=== PATIENT | male | born 1940 | race Caucasian/White ===

== ENCOUNTER → 2017-06-27 | Outpatient (CLI) | payer MEDICARE, BC ==
[2017-06-27 15:53] LABS: CH 31.7; CHCM 32.1; HCT 46.2 % (39.0-53.0); HDW 2.36; HGB 14.4 gm/dL (13.0-17.5); MCH 30.9 pg (25.0-35.0); MCHC 31.2 g/dL (31.0-37.0); Mean Platelet Volume 7.1; RBC 4.67 m/uL (4.30-5.90); RDW 12.8 % (11.5-15.5); WBC 9.8 k/uL (3.8-10.6)
[2017-06-27 16:00] LABS: Anion Gap 9 mmol/L; Blood Urea Nitrogen 12 mg/dL (9-20); Calcium 9.8 mg/dL (8.4-10.2); Carbon Dioxide 25 mmol/L (22-30); Chloride 100 mmol/L (98-107); Glucose 93 mg/dL (74-99); Non-African American GFR(MDRD) >60 (>60 ml/min/1.73 sqM); Potassium 5.2 mmol/L (3.5-5.1); Sodium 134 mmol/L (137-145)
== END | disposition home or self-care (01) ==
LOC: LABWHC1 15:23
PROVIDERS: ATTEND Internal Medicine Interventional Cardiology
DX: R63.4 Abnormal weight loss (principal); I25.10 Atherosclerotic heart disease of native coronary artery without angina pectoris
CPT/HCPCS: 36415; 80048; 85027

== ENCOUNTER → 2017-08-10 | Outpatient (CLI) | payer MEDICARE, BC ==
[2017-08-10 10:26] LABS: Calcium 9.8 mg/dL (8.4-10.2); Magnesium 1.8 mg/dL (1.6-2.3)
[2017-08-14 06:32] LABS: Vitamin E (Alpha Tocopherol) 472 ug/dL (500-1800)
[2017-08-20 19:35] LABS: Vitamin K 102 pg/mL (80-1160)
[2017-08-24 14:03] LABS: Nicotinamide 20 ng/mL; Nicotinic Acid None Detected; Nicotinuric Acid None Detected
== END | disposition home or self-care (01) ==
LOC: LABWHC1 08:42
PROVIDERS: ATTEND Psychiatry & Neurology Pain Medicine
DX: G89.4 Chronic pain syndrome (principal); Z79.899 Other long term (current) drug therapy
CPT/HCPCS: 36415; 82306; 82310; 82550; 82746; 83519; 83735; 84207; 84425; 84446; 84590; 84591; 84597

== ENCOUNTER → 2017-10-04 | Outpatient (CLI) | payer MEDICARE, BC ==
--- NOTE | 2017-10-05 09:09 | US ---
EXAMINATION TYPE: US kidneys/renal and bladder DATE OF EXAM: 10/04/2017 COMPARISON: NONE CLINICAL HISTORY: R31.9 Gross hematuria. EXAM MEASUREMENTS: Right Kidney: 10.6 x 4.3 x 5.0 cm Left Kidney: 11.5 x 6.1 x 5.9 cm Right Kidney: No hydronephrosis. Small simple appearing cyst lower pole measuring 1.3 x 1.0 x 1.4 cm Left Kidney: No hydronephrosis or masses seen Bladder: wnl Bilateral Jets seen: Yes There is no evidence for hydronephrosis at this point in time. No nephrolithiasis is seen. The ur inary bladder is anechoic. Bilateral ureteral jets are seen. IMPRESSION: No significant finding is seen to account for patient's symptoms of hematuria. If symptoms persists f urther investigation with CT urogram would be warranted.
== END | disposition home or self-care (01) ==
LOC: RADUSMAIN 15:27
PROVIDERS: ATTEND Internal Medicine
DX: R31.9 Hematuria, unspecified (principal)
CPT/HCPCS: 76770

== ENCOUNTER → 2017-10-31 | Outpatient (CLI) | payer MEDICARE, BC ==
[2017-10-31 19:13] LABS: Iron Saturation 32.48 (15.00-50.00)
== END | disposition home or self-care (01) ==
LOC: LABWHC1 13:28
PROVIDERS: ATTEND Psychiatry & Neurology Pain Medicine
DX: D64.9 Anemia, unspecified (principal); G62.9 Polyneuropathy, unspecified; G89.29 Other chronic pain; M62.81 Muscle weakness (generalized); R53.83 Other fatigue
CPT/HCPCS: 36415; 82728; 83540; 83550; 84466; 84550

== ENCOUNTER → 2018-02-14 | Outpatient (CLI) | payer MEDICARE, BC ==
[2018-02-14 18:44] LABS: Blood Urea Nitrogen 14 mg/dL (9-20)
--- NOTE | 2018-02-15 09:30 | CT ---
EXAMINATION TYPE: CT chest w con DATE OF EXAM: 02/14/2018 COMPARISON: NONE HISTORY: Cough, weight loss and inability to get warm CT DLP: 298.2 mGycm, Automated exposure control for dose reduction was used. CONTRAST: Performed injected with 100 mL of Isovue 300. TECHNIQUE: Axial images were obtained at 5 mm thick sections. Reconstructed images are reviewed on [employer] computer in the coronal plane. FINDINGS: Portion of the thyroid visualized is normal. No suspicious lung findings.. Very minimal subsegmental streak atelectasis in the superior segment le ft lower lobe. Near the major fissure postsurgical changes are within the mediastinum from prior card iac surgery. Sternotomy wires are present. No enlarged mediastinal or hilar adenopathy is evident. Couple small shotty lymph nodes are present . The ascending aorta diameter at the level of the main pulmonary artery is 3.8 cm. The main pulmona ry artery diameter at the bifurcation is 2.7 cm. Coronary artery calcification appears to be present. Limited CT sections are obtained through the upper abdomen. Abundant fecal debris is through the visu hunter colon Abdomen is otherwise essentially unremarkable. IMPRESSIONS: 1. No acute abnormality CT chest
== END ==
LOC: RADCTMAIN 18:07
PROVIDERS: ATTEND Internal Medicine
DX: R05 Cough (principal); R63.4 Abnormal weight loss
CPT/HCPCS: 82565; 84520; 71260; 36415; Q9967

== ENCOUNTER 2018-07-28 22:54 | Inpatient (IN) | payer MEDICARE, BC ==
[2018-07-28] MEDS ORDERED: MORPHINE SULFATE 2 MG/ML SYRINGE IVP STA (23:15)
[2018-07-28] MEDS ORDERED: ONDANSETRON 4 MG/2 ML VIAL IVP STA (23:15)
[2018-07-28] MEDS ORDERED: MORPHINE SULFATE 4 MG/ML SYRINGE IVP STA (23:24)
[2018-07-28 23:39] LABS: Basophils % (A) 0 %; Eosinophils # (A) 0.1 k/uL (0-0.7); Eosinophils % (A) 1 %; HCT 41.6 % (39.0-53.0); HGB 13.6 gm/dL (13.0-17.5); Lymphocytes # (A) 1.3 k/uL (1.0-4.8); Lymphocytes % (A) 11 %; MCH 30.4 pg (25.0-35.0); MCHC 32.6 g/dL (31.0-37.0); MCV 93.3 fL (80.0-100.0); Mean Platelet Volume 7.4; Monocytes # (A) 0.5 k/uL (0-1.0); Monocytes % (A) 5 %; Neutrophils # (A) 9.6 k/uL (1.3-7.7); Neutrophils % (A) 82 %; Platelet Count 557 k/uL (150-450); RBC 4.46 m/uL (4.30-5.90); RDW 13.5 % (11.5-15.5); WBC 11.7 k/uL (3.8-10.6)
[2018-07-28 23:48] LABS: Albumin 4.5 g/dL (3.5-5.0); Anion Gap 13 mmol/L; Blood Urea Nitrogen 15 mg/dL (9-20); Calcium 10.1 mg/dL (8.4-10.2); Carbon Dioxide 21 mmol/L (22-30); Chloride 96 mmol/L (98-107); Glucose 130 mg/dL (74-99); Sodium 130 mmol/L (137-145); Total Bilirubin 1.4 mg/dL (0.2-1.3)
[2018-07-28 23:50] LABS: ALT 32 U/L (21-72); AST 36 U/L (17-59); Alkaline Phosphatase 76 U/L (38-126); Magnesium 1.8 mg/dL (1.6-2.3); Potassium 5.1 mmol/L (3.5-5.1)
[2018-07-29] MEDS ORDERED: ONDANSETRON 4 MG/2 ML VIAL IVP STA (00:18)
[2018-07-29] MEDS ORDERED: HYDROmorphone 1 MG/ML 1 ML SYRINGE IVP STA (00:20)
[2018-07-29 00:29] LABS: Creatine Kinase MB 2.5 ng/mL (0.0-2.4)
--- NOTE | 2018-07-29 00:34 | CT ---
EXAMINATION TYPE: CT angio thor/abd pel aorta DATE OF EXAM: 07/29/2018 COMPARISON: HISTORY: lower abdominal and back pain CT DLP: 1408.6 mGycm. Automated Exposure Control for Dose Reduction was Utilized. CONTRAST: CT scan of the thorax, abdomen and pelvis is performed with IV Contrast, patient injected with 100mL mL of Isovue 370. FINDINGS: Multiple axial sections were obtained from the aortic arch to the mid pelvis without and subsequently with intravenous contrast. There are 3-D post processed images. There is coarse interstitial density in the lungs. There is no evidence of a pulmonary mass. Heart is enlarged. Thoracic aorta is intact without evidence of aneurysm or dissection. There is normal contr ast opacification of the pulmonary arteries. The ascending aorta measures 3.8 cm. Abdominal aorta ivana sures 3.2 cm at the diaphragm. There is patency of the celiac artery and superior mesenteric artery. There is bilateral patency of t he renal arteries. There is bilateral patency of the common internal and extra iliac arteries. I see no retroperitoneal adenopathy. There is no evidence of abdominal aortic aneurysm or dissection. Liver spleen pancreas both kidneys appear intact. There is 2 cm cortical cyst posterior right kidney. Ther e is no adrenal mass. There is retained fecal material in the large bowel. There is multilevel spondy losis in the lumbar spine with bony spinal stenosis at L4-5. There is also spinal stenosis at L5-S1. IMPRESSION: Negative CT angiogram of the chest and abdomen. No evidence of aortic aneurysm or dissection. No evid ence of hemodynamic stenosis.Mild ectasia of the upper abdominal aorta. Constipation. Lumbar spinal stenosis.
--- NOTE | 2018-07-29 01:15 | XR ---
EXAMINATION TYPE: XR chest 2V DATE OF EXAM: 07/29/2018 COMPARISON: 10/23/2014 HISTORY: Chest pain TECHNIQUE: Frontal and lateral views of the chest are obtained. FINDINGS: There is no heart failure nor confluent pneumonic infiltrate. There are small linear densi ty at the left lung base. There are sternal wires. There is thoracic aorta is atheromatous. There are chest leads. IMPRESSION: Subsegmental atelectasis at the left lung base is new compared to old exam. Normal heart.
--- NOTE | 2018-07-29 01:38 | CT ---
EXAMINATION TYPE: CT lumbar spine wo con DATE OF EXAM: 07/29/2018 1:30 AM COMPARISON: None HISTORY: Back pain CT DLP: mGycm Automated exposure control for dose reduction was used. Unenhanced CT of the lumbar spine was performed. Bone and soft tissue window settings are submitted as well as coronal and sagittal reconstructions. There is degenerative mild disc space narrowing throughout the lumbar spine with variable vacuum disc phenomenon. There is spur formation of the endplates throughout the lumbar spine. I see no compressi on fracture. The posterior elements are intact. There is no evidence of focal bone destruction. There is slight lumbar dextroscoliosis. The sacroiliac joints appear intact. There is no lumbar paraspinal mass. There is moderate spinal stenosis at L4-5 due to facet arthropathy and ligamentum flavum thick ening. There is a mild spinal stenosis at L5-S1 and L3-4. IMPRESSION: Moderate spinal stenosis at L4-5. There is mild spinal stenosis at L3-4 and L5-S1. Spondylotic changes without evidence of a fracture.
[2018-07-29] MEDS ORDERED: IBUPROFEN 400 MG TAB PO PRN (01:41)
[2018-07-29] MEDS ORDERED: ACETAMINOPHEN TAB 325 MG TAB PO PRN (01:41)
[2018-07-29] MEDS ORDERED: NALOXONE 0.4 MG/ML 1 ML VIAL IV PRN (01:41)
--- NOTE | 2018-07-29 01:45 | ED ---
Back Pain HPI - General Chief Complaint: Back Pain/Injury Stated Complaint: BACK PAIN Time Seen by Provider: 07/28/18 23:00 Source: patient, EMS - History of Present Illness Initial Comments: This 78-year-old male past medical history of HTN, CAD s/p triple bypass, chronic low back pain presenting today for cc of low back pain x30 minutes. Pt states that while at home on the toilet just prior to arrival he went to turn he began experiencing low back pain, 10/10 sharp pain midline. Patient denies falling or injury to the back. Patient states that he has baseline numbness of the legs from peripheral neuropathy, denies changes today. Patient denies any loss of bowel bladder control or urinary retention. Patient denies any chest pain, shortness of breath. Patient does admit to nausea because of the severity of pain, had episode of emesis prior to arrival. Denies abdominal pain , hematemesis,melena, hematochezia. Upon arrival pt appears to be in distress due to pain, he arrived via EMS, VS stable. Pt grabbing towards lower back. Remainder of ROS (-). - Related Data Home Medications Medication Instructions Recorded Confirmed Aspirin 81 mg PO DAILY 10/23/14 10/23/14 Lisinopril [Prinivil] 10 mg PO DAILY 10/23/14 10/23/14 Metoprolol Tartrate [Lopressor] 50 mg PO DAILY 10/23/14 10/23/14 Simvastatin [Zocor] 20 mg PO HS 10/23/14 10/23/14 Spironolactone [Aldactone] 25 mg PO DAILY 10/23/14 10/23/14 Allergies Allergy/AdvReac Type Severity Reaction Status Date / Time No Known Allergies Allergy Verified 07/28/18 22:57 Review of Systems ROS Statement: Those systems with pertinent positive or pertinent negative responses have been documented in the HPI. ROS Other: All systems not noted in ROS Statement are negative. Constitutional: Denies: fever, chills, night sweats ENT: Denies: ear pain, throat pain Respiratory: Denies: cough, dyspnea, wheezes, hemoptysis, stridor Cardiovascular: Denies: chest pain, palpitations Endocrine: Denies: fatigue Gastrointestinal: Reports: nausea, vomiting. Denies: abdominal pain, diarrhea, constipation, hematemesis, melena, hematochezia Genitourinary: Denies: urgency, dysuria, frequency, hematuria, discharge Musculoskeletal: Reports: back pain (10/10 stabbing pain in the lumbar spine midline) Skin: Denies: rash, lesions Neurological: Reports: weakness (right LE weakness, pt states this has been for years no new changes), numbness (b/l leg numbness states this is chronic). Denies: headache, paresthesias, confusion Past Medical History Past Medical History: Coronary Artery Disease (CAD), Hyperlipidemia, Hypertension History of Any Multi-Drug Resistant Organisms: None Reported Past Surgical History: Cholecystectomy, Coronary Bypass/CABG Past Psychological History: No Psychological Hx Reported Smoking Status: Former smoker Past Alcohol Use History: None Reported Past Drug Use History: None Reported General Exam - General Exam Comments Initial Comments: General: The patient is awake and alert, he appears to be in pain-grabbing lumbar spine Eye: Pupils are equal, round and reactive to light, extra-ocular movements are intact. No nystagmus. There is normal conjunctiva bilaterally. No signs of icterus. Ears, nose, mouth and throat: There are moist mucous membranes and no oral lesions. Neck: The neck is supple, there is no tenderness or JVD. Cardiovascular: There is a regular rate and rhythm. No murmur, rub or gallop is appreciated. Respiratory: Lungs are clear to auscultation, respirations are non-labored, breath sounds are equal. No wheezes, stridor, rales, or rhonchi. Gastrointestinal: No noted diaphoresis, jaundice, pallor, protecting postures or squirming. Symmetrical pigmentation of abdomen without signs of inflammation, or striae. Umbilicus mildline, inverted without swelling. No dilated veins. Abdomen contour obese, no noted abdominal distention. No visible masses. No peristalsis , aortic pulsations, or ventral hernia. Bowel sounds audible in all 4 quadrants , unremarkable. No friction rubs or venous hums. No epigastic, hepatic or abdominal bruits. No tenderness to light or deep palpation. Liver edge, not palpable. Spleen edge, right and left kidney not palpable. Superior bladder margin non-tender. Special Testing: Negative Thornton, Rovsing, McBurney, Fannie, cutaneous hyperesthesia. Iliopsoas and obturator tests negative bilaterally. Negative Heel Jar test/ tres sign. No CVA tenderness. Digital rectal exam deferred. Negative gupta turners or cullens sign Musculoskeletal: Tenderness midline and paravertebral to palpation of the lumbar spine. Strength 5/5 of the LE equally b/l. Sensation intact of the LE to light touch. DP pulses equal bilaterally 2+. Neurological: A&O x 3. CN II-XII intact, There are no obvious motor or sensory deficits. Coordination appears grossly intact. Speech is normal. Skin: Skin is warm and dry and no rashes or lesions are noted. Scar midline of anterior chest. Psychiatric: Cooperative, appropriate mood & affect, normal judgment. Course Vital Signs 07/28/18 07/28/18 07/28/18 22:57 23:13 23:52 Temperature 97.6 F Pulse Rate 72 94 Pulse Rate [ 97 Typesetting Machine Operator/Tender ] Respiratory 20 18 Rate Blood Pressure 138/90 143/85 O2 Sat by Pulse 94 L 99 Oximetry 07/29/18 07/29/18 00:44 02:17 Temperature 98.3 F Pulse Rate 87 66 Pulse Rate [ Typesetting Machine Operator/Tender ] Respiratory 18 18 Rate Blood Pressure 143/75 98/55 O2 Sat by Pulse 100 98 Oximetry - Reevaluation(s) Reevaluation #1: Pain 0 after medications, pt resting comfortably. VS stable on monitor. Pt denies complaints at this time. 07/29/18 Medical Decision Making - Medical Decision Making Upon arrival pt is grabbing at back stating pain 10/10. EKG obtained revealing a normal rate with no acute ST changes, interventricular block noted. Laboratory studies as noted above. Negative cardiac workup including, troponins/ CK-MB, pt denies chest pain or shortness of breath. CTA obtained due to suspicion for AAA from severity of pt symptoms with hx of no direct trauma. CTA (-), lung infiltrate noted-pt stated he is aware and following with primary care provider. Recon of lumbar spine obtained revealing moderate spell stenosis at L4-L5 there is mild stenosis at L3-L4 and L5-S1. No noted severe stenosis. It is no evidence of compression fractures. Some lumbar dextroscoliosis noted. Pt given 4mg morphine, then 1mg dilaudid for pain mgmt during duration in ER. Upon reevaluation pt stated pain 0/10, he is resting comfortably. 2nd EKG obtained due to clarity of 1st, appears to be rhythm suspicious for atrial flutter. Pt rate controlled/hemodynamically stable. No known history of flutter or fibrillation. Pt will be admitted for pain mgmt as well as evaluation for new onset atrial flutter. Pt placed on telemetry with cardiology consult. All findings including incidental discussed with pt, pt verbalized understanding of plan. Pt agreedable with admission, and transferred to the floor in stable condition. Pt admitted to [facility] internal medicine with cardiology associates consult. Case discussed at length with Dr Adame who reviewed all imaging/EKG, and evaluated person [id number] prior to admission. - Lab Data Result diagrams: 07/28/18 23:17 07/28/18 23:17 Lab Results 07/28/18 07/28/18 07/28/18 Range/Units 23:17 23:17 23:17 WBC 11.7 H (3.8-10.6) k/uL RBC 4.46 (4.30-5.90) m/uL Hgb 13.6 (13.0-17.5) gm/dL Hct 41.6 (39.0-53.0) % MCV 93.3 (80.0-100.0) fL MCH 30.4 (25.0-35.0) pg MCHC 32.6 (31.0-37.0) g/dL RDW 13.5 (11.5-15.5) % Plt Count 557 H (150-450) k/uL Neutrophils % 82 % Lymphocytes % 11 % Monocytes % 5 % Eosinophils % 1 % Basophils % 0 % Neutrophils # 9.6 H (1.3-7.7) k/uL Lymphocytes # 1.3 (1.0-4.8) k/uL Monocytes # 0.5 (0-1.0) k/uL Eosinophils # 0.1 (0-0.7) k/uL Basophils # 0.0 (0-0.2) k/uL Sodium 130 L (137-145) mmol/L Potassium 5.1 (3.5-5.1) mmol/L Chloride 96 L (98-107) mmol/L Carbon Dioxide 21 L (22-30) mmol/L Anion Gap 13 mmol/L BUN 15 (9-20) mg/dL Creatinine 0.77 (0.66-1.25) mg/dL Est GFR (CKD-EPI)AfAm >90 (>60 ml/min/1.73 sqM) Est GFR (CKD-EPI)NonAf 88 (>60 ml/min/1.73 sqM) Glucose 130 H (74-99) mg/dL Calcium 10.1 (8.4-10.2) mg/dL Magnesium 1.8 (1.6-2.3) mg/dL Total Bilirubin 1.4 H (0.2-1.3) mg/dL AST 36 (17-59) U/L ALT 32 (21-72) U/L Alkaline Phosphatase 76 (38-126) U/L Total Creatine Kinase 79 (55-170) U/L CK-MB (CK-2) 2.5 H (0.0-2.4) ng/mL CK-MB (CK-2) Rel Index 3.2 Troponin I (0.000-0.034) ng/mL Total Protein 7.0 (6.3-8.2) g/dL Albumin 4.5 (3.5-5.0) g/dL 07/28/18 Range/Units 23:17 WBC (3.8-10.6) k/uL RBC (4.30-5.90) m/uL Hgb (13.0-17.5) gm/dL Hct (39.0-53.0) % MCV (80.0-100.0) fL MCH (25.0-35.0) pg MCHC (31.0-37.0) g/dL RDW (11.5-15.5) % Plt Count (150-450) k/uL Neutrophils % % Lymphocytes % % Monocytes % % Eosinophils % % Basophils % % Neutrophils # (1.3-7.7) k/uL Lymphocytes # (1.0-4.8) k/uL Monocytes # (0-1.0) k/uL Eosinophils # (0-0.7) k/uL Basophils # (0-0.2) k/uL Sodium (137-145) mmol/L Potassium (3.5-5.1) mmol/L Chloride (98-107) mmol/L Carbon Dioxide (22-30) mmol/L Anion Gap mmol/L BUN (9-20) mg/dL Creatinine (0.66-1.25) mg/dL Est GFR (CKD-EPI)AfAm (>60 ml/min/1.73 sqM) Est GFR (CKD-EPI)NonAf (>60 ml/min/1.73 sqM) Glucose (74-99) mg/dL Calcium (8.4-10.2) mg/dL Magnesium (1.6-2.3) mg/dL Total Bilirubin (0.2-1.3) mg/dL AST (17-59) U/L ALT (21-72) U/L Alkaline Phosphatase (38-126) U/L Total Creatine Kinase (55-170) U/L CK-MB (CK-2) (0.0-2.4) ng/mL CK-MB (CK-2) Rel Index Troponin I 0.017 (0.000-0.034) ng/mL Total Protein (6.3-8.2) g/dL Albumin (3.5-5.0) g/dL - EKG Data EKG Comments: #1 EKG, unable to determine rhythm appears regular. Non specific T wave abnormalities. No ST elevation or depression. Nonspecific intraventricular block. Vent rate 96bpm, QRS 132 ms, QT/QTC 334/421 ms #2 see above EKG, with atrial flutter rate of 88bpm. Disposition Clinical Impression: Low back pain, Spinal stenosis, Intractable pain, Atrial flutter Disposition: ADMITTED IP TO THIS [facility] Condition: Stable Is patient prescribed a controlled substance at d/c from ED?: No Time of Disposition: 01:44 Decision to Admit Reason: Admit from EC Decision Date: 07/29/18 Decision Time: 01:44
[2018-07-29] MEDS: ONDANSETRON 4 MG/2 ML VIAL IVP PRN ×3 (04:47→23:41)
[2018-07-29] MEDS: MORPHINE SULFATE 4 MG/ML SYRINGE IV PRN ×5 (04:48→23:41)
[2018-07-29] MEDS: SODIUM CHLORIDE 0.9% 1,000 ML IV SCH (08:02)
--- NOTE | 2018-07-29 11:09 | P.CRDCN ---
History of Present Illness Consult date: 07/29/18 Requesting physician: Corazon Phillips Consult reason: atrial flutter Chief complaint: Back pain History of present illness: This is a pleasant 78-year-old gentleman with history of hyperlipidemia, coronary artery disease with prior bypass surgery in 2011. Patient underwent VASQUEZ to the LAD, saphenous vein graft to the OM and saphenous vein graft to the right coronary artery. Patient also has history of hypertension. He presents to the hospital on this occasion with symptoms of lower back pain and bilateral leg numbness. Apparently the patient was sitting on the toilet, he turned sideways and developed a sharp 10 out of 10 chest pain. He does have some numbness in his legs routinely from peripheral neuropathy but this seemed to be worse. He did have an episode of nausea and vomiting prior to arrival here. According to the , patient has also had a very poor appetite recently at home, has lost about 10 pounds since April. At the time of my examination this morning his pain is significantly improved. An EKG was performed on the patient's arrival which showed atrial flutter, subsequent EKG continued to show atrial flutter with a 3 to one conduction. [address]-T wave changes. According to the patient he has never been told in the past to have any irregularity of his heartbeat. CT of the thoracic aorta was performed which was negative, no evidence of aortic aneurysm or dissection. Chest x-ray showed subsegmental atelectasis in the left lung base new as compared with old exam. CT of the lumbar spine showed moderate spinal stenosis at L4 to 5. Spondylitic changes without any evidence of acute fracture. Blood pressure on arrival here 138/90 with a heart rate in the 90s, 94% on room air. Blood pressure this morning 110/60 with a heart rate in the 70s, 97% on 2 L of oxygen. White blood cell count 11.7, hemoglobin 13.6, platelet count 557. Sodium 1:30, potassium 5.1, BUN 15, creatinine 0.7. Magnesium 1.8, total bilirubin 1.4. Troponin 0.01. I did have a discussion with the patient, his and his son regarding the importance of anticoagulation for stroke prevention. We will obtain an echocardiogram with Doppler study as well as a TSH, start the patient on Eliquis for anticoagulation. Past Medical History Past Medical History: Coronary Artery Disease (CAD), Hyperlipidemia, Hypertension Additional Past Medical History / Comment(s): new onset A flutter History of Any Multi-Drug Resistant Organisms: None Reported Past Surgical History: Cholecystectomy, Coronary Bypass/CABG Past Anesthesia/Blood Transfusion Reactions: No Reported Reaction Past Psychological History: No Psychological Hx Reported Smoking Status: Former smoker Past Alcohol Use History: None Reported Past Drug Use History: None Reported - Past Family History Mother Family Medical History: Dementia Father History Unknown: Yes Medications and Allergies Home Medications Medication Instructions Recorded Confirmed Type Aspirin 81 mg PO DAILY@0900 10/23/14 07/29/18 History Lisinopril [Prinivil] 10 mg PO DAILY@1100 10/23/14 07/29/18 History Simvastatin [Zocor] 20 mg PO HS@1900 10/23/14 07/29/18 History Metoprolol Tartrate [Lopressor] 25 mg PO BID@0900,1900 07/29/18 07/29/18 History Multivitamins, Thera [Multivitamin 1 tab PO MOWEFR@1100 07/29/18 07/29/18 History (formulary)] Allergies Allergy/AdvReac Type Severity Reaction Status Date / Time No Known Allergies Allergy Verified 07/29/18 08:06 Physical Exam Vitals: Vital Signs Temp Pulse Pulse Resp BP BP Pulse Ox 07/29/18 03:43 98.3 F 78 18 110/66 97 07/29/18 02:17 98.3 F 66 18 98/55 98 07/29/18 00:44 87 18 143/75 100 07/28/18 23:52 94 18 143/85 99 07/28/18 23:13 97 07/28/18 22:57 97.6 F 72 20 138/90 94 L Intake and Output 07/28/18 07/29/18 07/29/18 22:59 06:59 14:59 Intake Total 240 Output Total 150 Balance -150 240 Intake: Oral 240 Output: Urine 150 Other: Voiding Method Urinal # Voids 1 Weight 69.853 kg 67.268 kg PHYSICAL EXAMINATION: GENERAL: 78-year-old gentleman in no acute distress at the time of my examination HEENT: Head is atraumatic, normocephalic. Pupils equal, round. Sclera anicteric. Conjunctiva are clear. Mucous membranes of the mouth are moist. Neck is supple. There is no elevated jugular venous pressure. No carotid bruit is heard. HEART EXAMINATION: Heart S1 and S2 irregularly irregular a systolic murmur is heard. CHEST EXAMINATION: Lungs are clear to auscultation and precussion. No chest wall tenderness is noted on palpation or with deep breathing. ABDOMEN: Soft, nontender. Bowel sounds are heard. No organomegaly noted. EXTREMITIES: 2+ peripheral pulses with no evidence of peripheral edema and no calf tenderness noted. NEUROLOGIC patient is awake, alert and oriented 3 . . Results 07/28/18 23:17 07/28/18 23:17 Cardiac Enzymes 07/28/18 07/28/18 07/28/18 Range/Units 23:17 23:17 23:17 AST 36 (17-59) U/L CK-MB (CK-2) 2.5 H (0.0-2.4) ng/mL Troponin I 0.017 (0.000-0.034) ng/mL CBC 07/28/18 Range/Units 23:17 WBC 11.7 H (3.8-10.6) k/uL RBC 4.46 (4.30-5.90) m/uL Hgb 13.6 (13.0-17.5) gm/dL Hct 41.6 (39.0-53.0) % Plt Count 557 H (150-450) k/uL Comprehensive Metabolic Panel 07/28/18 Range/Units 23:17 Sodium 130 L (137-145) mmol/L Potassium 5.1 (3.5-5.1) mmol/L Chloride 96 L (98-107) mmol/L Carbon Dioxide 21 L (22-30) mmol/L BUN 15 (9-20) mg/dL Creatinine 0.77 (0.66-1.25) mg/dL Glucose 130 H (74-99) mg/dL Calcium 10.1 (8.4-10.2) mg/dL AST 36 (17-59) U/L ALT 32 (21-72) U/L Alkaline Phosphatase 76 (38-126) U/L Total Protein 7.0 (6.3-8.2) g/dL Albumin 4.5 (3.5-5.0) g/dL Current Medications Generic Name Dose Route Start Last Admin Trade Name Freq PRN Reason Stop Dose Admin Acetaminophen 650 mg 11/19/18 01:41 Tylenol Tab PO Q6HR PRN Mild Pain or Fever > 100.5 Sodium Chloride 1,000 mls @ 20 mls/hr 07/29/18 01:45 07/29/18 08:02 Saline 0.9% IV Not Given .Q24H DARREN Ibuprofen 400 mg 07/29/18 01:41 Motrin PO Q6HR PRN Mild Pain or Fever > 100.5 Morphine Sulfate 4 mg 07/29/18 01:41 07/29/18 08:09 Morphine Sulfate (Inj) IV 4 mg Q4HR PRN Administration Severe Pain Naloxone HCl 0.2 mg 07/29/18 01:41 Narcan IV Q2M PRN Opioid Reversal Ondansetron HCl 4 mg 07/29/18 01:41 07/29/18 04:47 Zofran IVP 4 mg Q8HR PRN Administration Nausea And Vomiting Intake and Output 07/28/18 07/29/18 07/29/18 22:59 06:59 14:59 Intake Total 240 Output Total 150 Balance -150 240 Intake: Oral 240 Output: Urine 150 Other: Voiding Method Urinal # Voids 1 Weight 69.853 kg 67.268 kg 07/28/18 23:17 07/28/18 23:17 EKG Interpretations (text) Atrial flutter with moderately rapid ventricular response Assessment and Plan Plan: Assessment and plan #1 right lower back pain, suggestive of possible strain #2 atrial flutter, typical, appears to be of new onset for this patient #3 hypertension #4 hyperlipidemia #5 known history of coronary Artery disease with prior bypass surgery in 2011 #6 history of nicotine dependence in the past Plan We will obtain an echocardiogram with Doppler study. We will also start the patient on Lopressor 25 mg now and twice a day. We will give the patient Lipitor 40 mg daily, we will start anticoagulation in the form of Eliquis 5 mg one tablet by mouth twice a day. Discontinue Motrin. Further recommendations to follow. DNP note has been reviewed, I agree with a documented findings and plan of care. Patient was seen and examined.
--- NOTE | 2018-07-29 12:10 | ECHOF ---
Referral Reason:aflutter MEASUREMENTS -------- HEIGHT: 182.9 cm WEIGHT: 67.1 kg BP: 110/66 RVIDd: 3.0 cm (< 3.3) IVSd: 1.5 cm (0.6 - 1.1) LVIDd: 4.2 cm (3.9 - 5.3) LVPWd: 1.7 cm (0.6 - 1.1) IVSs: 1.7 cm LVIDs: 3.2 cm LVPWs: 1.8 cm LA Diam: 4.1 cm (2.7 - 3.8) LAESV Index (A-L): 40.25 ml/m Ao Diam: 3.8 cm (2.0 - 3.7) AV Cusp: 2.3 cm (1.5 - 2.6) MV EXCURSION: 22.560 mm (> 18.000) MV EF SLOPE: 103 mm/s (70 - 150) EPSS: 0.3 cm MV E Tejas: 1.17 m/s MV DecT: 144 ms MV A Tejas: 0.47 m/s MV E/A Ratio: 2.49 RAP: 5.00 mmHg RVSP: 36.80 mmHg FINDINGS -------- Sinus rhythm. This was a technically good study. The left ventricular size is normal. There is moderate concentric left ventricular hypertrophy. O verall left ventricular systolic function is normal with, an EF between 60 - 65 %. The right ventricle is normal in size. LA is moderately dilated 34-39 ml/m2 The right atrium is normal in size. There is mild aortic valve sclerosis. The mitral valve leaflets are mildly thickened. Mild tricuspid regurgitation present. There is mild pulmonary hypertension. The right ventricular systolic pressure, as measured by Doppler, is 36.80mmHg. Trace/mild (physiologic) pulmonic regurgitation. The aortic root is dilated measuring 3.8cm. IVC Not well visulized. There is no pericardial effusion. CONCLUSIONS -------- 1. Sinus rhythm. 2. This was a technically good study. 3. The left ventricular size is normal. 4. There is moderate concentric left ventricular hypertrophy. 5. Overall left ventricular systolic function is normal with, an EF between 60 - 65 %. 6. The right ventricle is normal in size. 7. LA is moderately dilated 34-39 ml/m2 8. The right atrium is normal in size. 9. There is mild aortic valve sclerosis. 10. The mitral valve leaflets are mildly thickened. 11. Mild tricuspid regurgitation present. 12. There is mild pulmonary hypertension. 13. The right ventricular systolic pressure, as measured by Doppler, is 36.80mmHg. 14. Trace/mild (physiologic) pulmonic regurgitation. 15. The aortic root is dilated measuring 3.8cm. 16. IVC Not well visulized. 17. There is no pericardial effusion. COMPUTER SYSTEM SPECIALIST: Ayleen Salvador RDCS
[2018-07-29] MEDS: METOPROLOL TARTRATE 25 MG TAB PO SCH ×2 (12:31→19:42)
[2018-07-29] MEDS: APIXABAN 5 MG TAB PO SCH ×2 (12:32→19:43)
[2018-07-29 14:24] VITALS: BMI 20.1
--- NOTE | 2018-07-29 17:28 | P.HPIM ---
History of Present Illness 78-year-old male past medical history of HTN, CAD s/p triple bypass, chronic low back pain presenting today for cc of low back pain x30 minutes. Pt states that while at home on the toilet just prior to arrival he went to turn he began experiencing low back pain, 10/10 sharp pain midline. Patient denies falling or injury to the back. Patient states that he has baseline numbness of the legs from peripheral neuropathy, denies changes today. Patient denies any loss of bowel bladder control or urinary retention. Patient denies any chest pain, shortness of breath. Patient does admit to nausea because of the severity of pain, had episode of emesis prior to arrival. Denies abdominal pain, hematemesis ,melena, hematochezia. Upon arrival pt appears to be in distress due to pain, he arrived via EMS, VS stable. Pt grabbing towards lower back. In the ED An EKG was performed on the patient's arrival which showed atrial flutter, subsequent EKG continued to show atrial flutter with a 3 to one conduction. N[address]-T wave changes. Chest x-ray showed subsegmental atelectasis in the left lung base new as compared with old exam. CT of the lumbar spine showed moderate spinal stenosis at L4 to 5. Spondylitic changes without any evidence of acute fracture. Blood pressure on arrival here 138/90 with a heart rate in the 90s, 94% on room air. Blood pressure this morning 110/60 with a heart rate in the 70s, 97% on 2 L of oxygen. White blood cell count 11.7, hemoglobin 13.6, platelet count 557. Sodium 1:30, potassium 5.1, BUN 15, creatinine 0.7. Magnesium 1.8, total bilirubin 1.4. Troponin 0.01. Review of Systems Constitutional: Denies chills, Denies fever Eyes: denies blurred vision Ears, nose, mouth and throat: Denies headache, Denies nasal congestion Cardiovascular: Denies chest pain Respiratory: Denies cough, Denies dyspnea Gastrointestinal: Denies abdominal pain Musculoskeletal: Reports gait dysfunction, Reports low back pain, Reports muscle cramps, Denies leg numbness/tingling Integumentary: Denies darkening of skin, Denies rash Neurological: Denies confusion, Denies paresthesias Endocrine: Denies cold intolerance, Denies heat intolerance, Denies polydipsia, Denies polyuria Hematologic/Lymphatic: Denies easy bruising, Denies lymphadenopathy Allergic/Immunologic: Denies seasonal allergies Past Medical History Past Medical History: Coronary Artery Disease (CAD), Hyperlipidemia, Hypertension Additional Past Medical History / Comment(s): new onset A flutter History of Any Multi-Drug Resistant Organisms: None Reported Past Surgical History: Cholecystectomy, Coronary Bypass/CABG Past Anesthesia/Blood Transfusion Reactions: No Reported Reaction Past Psychological History: No Psychological Hx Reported Smoking Status: Former smoker Past Alcohol Use History: None Reported Past Drug Use History: None Reported - Past Family History Mother Family Medical History: Dementia Father History Unknown: Yes Medications and Allergies Home Medications Medication Instructions Recorded Confirmed Type Aspirin 81 mg PO DAILY@0900 10/23/14 07/29/18 History Lisinopril [Prinivil] 10 mg PO DAILY@1100 10/23/14 07/29/18 History Simvastatin [Zocor] 20 mg PO HS@1900 10/23/14 07/29/18 History Metoprolol Tartrate [Lopressor] 25 mg PO BID@0900,1900 07/29/18 07/29/18 History Multivitamins, Thera [Multivitamin 1 tab PO MOWEFR@1100 07/29/18 07/29/18 History (formulary)] Allergies Allergy/AdvReac Type Severity Reaction Status Date / Time No Known Allergies Allergy Verified 07/29/18 08:06 Physical Exam Vitals: Vital Signs Temp Pulse Pulse Resp BP BP Pulse Ox 07/29/18 08:00 98.3 F 88 18 151/72 99 07/29/18 03:43 98.3 F 78 18 110/66 97 07/29/18 02:17 98.3 F 66 18 98/55 98 07/29/18 00:44 87 18 143/75 100 07/28/18 23:52 94 18 143/85 99 07/28/18 23:13 97 07/28/18 22:57 97.6 F 72 20 138/90 94 L Intake and Output 07/28/18 07/29/18 07/29/18 22:59 06:59 14:59 Intake Total 240 Output Total 150 Balance -150 240 Intake: Oral 240 Output: Urine 150 Other: Voiding Method Urinal Urinal # Voids 1 Weight 69.853 kg 67.268 kg GENERAL: 78-year-old gentleman in no acute distress at the time of my examination HEENT: Head is atraumatic, normocephalic. Pupils equal, round. Sclera anicteric. Conjunctiva are clear. Mucous membranes of the mouth are moist. Neck is supple. There is no elevated jugular venous pressure. No carotid bruit is heard. HEART EXAMINATION: Heart S1 and S2 irregularly irregular a systolic murmur is heard. CHEST EXAMINATION: Lungs are clear to auscultation and precussion. No chest wall tenderness is noted on palpation or with deep breathing. ABDOMEN: Soft, nontender. Bowel sounds are heard. No organomegaly noted. EXTREMITIES: 2+ peripheral pulses with no evidence of peripheral edema and no calf tenderness noted. NEUROLOGIC patient is awake, alert and oriented 3 Results CBC & Chem 7: 07/28/18 23:17 07/28/18 23:17 Labs: Abnormal Lab Results - Last 24 Hours (Table) 07/28/18 07/28/18 07/28/18 Range/Units 23:17 23:17 23:17 WBC 11.7 H (3.8-10.6) k/uL Plt Count 557 H (150-450) k/uL Neutrophils # 9.6 H (1.3-7.7) k/uL Sodium 130 L (137-145) mmol/L Chloride 96 L (98-107) mmol/L Carbon Dioxide 21 L (22-30) mmol/L Glucose 130 H (74-99) mg/dL Total Bilirubin 1.4 H (0.2-1.3) mg/dL CK-MB (CK-2) 2.5 H (0.0-2.4) ng/mL Thrombosis Risk Factor Assmnt - Choose All That Apply Any of the Below Risk Factors Present?: Yes Each Factor Represents 1 point: Swollen legs (current) Other Risk Factors: Yes Each Risk Factor Represents 3 Points: Age 75 years or older Thrombosis Risk Factor Assessment Total Risk Factor Score: 4 Thrombosis Risk Factor Assessment Level: Moderate Risk Assessment and Plan Assessment: 1. Right lower back pain, suggestive of possible strain - Patient is started on morphine sulfate 4 mg IV every 4 hours when necessary - We will consult orthopedic surgery once patient is stable from cardiac standpoint 2. Atrial flutter; new onset for this patient - Cardiology is consulted and recommending starting patient on Lopressor 25 mg twice a day - Patient is started on Eliquis been and 5 mg twice a day for anticoagulation - Echocardiogram is ordered and is pending 3. Hypertension - Patient is started on metoprolol 25 mg twice a day - We'll continue to monitor blood pressure closely and make adjustments to medications as needed 4. Hyperlipidemia; Lipitor 40 mg by mouth daily at bedtime 5. Coronary Artery disease with prior bypass surgery in 2011 - Cardiology is consulted and workup is in progress 6. DVT prophylaxis; systemic anticoagulation CODE STATUS; full code
[2018-07-29] MEDS: ATORVASTATIN 40 MG TAB PO SCH (19:42)
[2018-07-29 23:40] VITALS: RESP 18
[2018-07-30] MEDS: MORPHINE SULFATE 4 MG/ML SYRINGE IV PRN ×2 (05:48→10:47)
[2018-07-30 06:18] LABS: Basophils % (A) 0 %; Eosinophils # (A) 0.1 k/uL (0-0.7); Eosinophils % (A) 1 %; HCT 41.1 % (39.0-53.0); HGB 13.8 gm/dL (13.0-17.5); Lymphocytes # (A) 0.9 k/uL (1.0-4.8); Lymphocytes % (A) 7 %; MCHC 33.4 g/dL (31.0-37.0); MCV 92.8 fL (80.0-100.0); Mean Platelet Volume 7.2; Monocytes # (A) 0.7 k/uL (0-1.0); Monocytes % (A) 5 %; Neutrophils # (A) 11.8 k/uL (1.3-7.7); Neutrophils % (A) 87 %; Platelet Count 643 k/uL (150-450); RBC 4.43 m/uL (4.30-5.90); RDW 13.4 % (11.5-15.5); WBC 13.6 k/uL (3.8-10.6)
[2018-07-30 06:53] LABS: Anion Gap 9 mmol/L; Blood Urea Nitrogen 19 mg/dL (9-20); Calcium 10.5 mg/dL (8.4-10.2); Carbon Dioxide 26 mmol/L (22-30); Chloride 95 mmol/L (98-107); Glucose 117 mg/dL (74-99); Potassium 5.5 mmol/L (3.5-5.1); Sodium 130 mmol/L (137-145)
[2018-07-30] MEDS: APIXABAN 5 MG TAB PO SCH ×2 (09:12→21:19)
[2018-07-30] MEDS: METOPROLOL TARTRATE 25 MG TAB PO SCH ×2 (09:12→21:19)
[2018-07-30] MEDS: ONDANSETRON 4 MG/2 ML VIAL IVP PRN (10:48)
--- NOTE | 2018-07-30 16:34 | P.PN ---
Subjective Progress Note Date: 07/30/18 This is a pleasant 78-year-old gentleman with history of hyperlipidemia, coronary artery disease with prior bypass surgery in 2011. Patient underwent VASQUEZ to the LAD, saphenous vein graft to the OM and saphenous vein graft to the right coronary artery. Patient also has history of hypertension. He presents to the hospital on this occasion with symptoms of lower back pain and bilateral leg numbness. Apparently the patient was sitting on the toilet, he turned sideways and developed a sharp 10 out of 10 chest pain. He does have some numbness in his legs routinely from peripheral neuropathy but this seemed to be worse. He did have an episode of nausea and vomiting prior to arrival here. According to the , patient has also had a very poor appetite recently at home, has lost about 10 pounds since April. At the time of my examination this morning his pain is significantly improved. An EKG was performed on the patient's arrival which showed atrial flutter, subsequent EKG continued to show atrial flutter with a 3 to one conduction. N[address]-T wave changes. According to the patient he has never been told in the past to have any irregularity of his heartbeat. CT of the thoracic aorta was performed which was negative, no evidence of aortic aneurysm or dissection. Chest x-ray showed subsegmental atelectasis in the left lung base new as compared with old exam. CT of the lumbar spine showed moderate spinal stenosis at L4 to 5. Spondylitic changes without any evidence of acute fracture. Blood pressure on arrival here 138/90 with a heart rate in the 90s, 94% on room air. Blood pressure this morning 110/60 with a heart rate in the 70s, 97% on 2 L of oxygen. White blood cell count 11.7, hemoglobin 13.6, platelet count 557. Sodium 1:30, potassium 5.1, BUN 15, creatinine 0.7. Magnesium 1.8, total bilirubin 1.4. Troponin 0.01. I did have a discussion with the patient, his and his son regarding the importance of anticoagulation for stroke prevention. We will obtain an echocardiogram with Doppler study as well as a TSH, start the patient on Eliquis for anticoagulation. 07/30/2018 She was seen and examined this morning, continues to be in atrial flutter however the rate is under adequate control. From cardiology's perspective he may be able to be discharged home today. Echocardiogram with Doppler study was performed which revealed a normal left ventricular systolic function. TSH level was normal. Objective - Vital Signs Vital signs: Vital Signs Temp 97.6 F 07/30/18 04:00 Pulse 91 07/30/18 04:00 Resp 18 07/30/18 04:00 BP 158/89 07/30/18 04:00 Pulse Ox 97 07/30/18 04:00 Intake & Output 07/29/18 07/30/18 07/30/18 18:59 06:59 18:59 Intake Total 480 Output Total 150 Balance 480 -150 Weight 67.268 kg 67.2 kg Intake: Oral 480 Output: Urine 150 Other: Voiding Method Urinal Urinal # Voids 3 1 0 - Exam PHYSICAL EXAMINATION: GENERAL: 78-year-old gentleman in no acute distress at the time of my examination HEENT: Head is atraumatic, normocephalic. Pupils equal, round. Sclera anicteric. Conjunctiva are clear. Mucous membranes of the mouth are moist. Neck is supple. There is no elevated jugular venous pressure. No carotid bruit is heard. HEART EXAMINATION: Heart S1 and S2 irregularly irregular a systolic murmur is heard. CHEST EXAMINATION: Lungs are clear to auscultation and precussion. No chest wall tenderness is noted on palpation or with deep breathing. ABDOMEN: Soft, nontender. Bowel sounds are heard. No organomegaly noted. EXTREMITIES: 2+ peripheral pulses with no evidence of peripheral edema and no calf tenderness noted. NEUROLOGIC patient is awake, alert and oriented 3 . - Labs CBC & Chem 7: 07/30/18 05:48 07/30/18 05:48 Labs: Abnormal Lab Results - Last 24 Hours (Table) 07/30/18 07/30/18 Range/Units 05:48 05:48 WBC 13.6 H (3.8-10.6) k/uL Plt Count 643 H (150-450) k/uL Neutrophils # 11.8 H (1.3-7.7) k/uL Lymphocytes # 0.9 L (1.0-4.8) k/uL Sodium 130 L (137-145) mmol/L Potassium 5.5 H (3.5-5.1) mmol/L Chloride 95 L (98-107) mmol/L Glucose 117 H (74-99) mg/dL Calcium 10.5 H (8.4-10.2) mg/dL Assessment and Plan Plan: Assessment and plan #1 right lower back pain, suggestive of possible strain #2 atrial flutter, typical, appears to be of new onset for this patient #3 hypertension #4 hyperlipidemia #5 known history of coronary Artery disease with prior bypass surgery in 2011 #6 history of nicotine dependence in the past Plan Echocardiogram with Doppler study revealed a normal left ventricular systolic function. From cardiology's perspective the patient may be able to be discharged home today. We'll make him a follow-up appointment in the office one week post discharge. DNP note has been reviewed, I agree with a documented findings and plan of care. Patient was seen and examined.
[2018-07-30] MEDS ORDERED: SODIUM POLYSTYRENE SULFONATE 15 GM/60 ML BOTTLE PO STA (20:12)
[2018-07-30] MEDS: DOCUSATE 100 MG CAP PO SCH (21:19)
[2018-07-30] MEDS: ATORVASTATIN 40 MG TAB PO SCH (21:19)
[2018-07-31 00:38] LABS: Appearance,Urine Clear (Clear); Bilirubin,Urine Negative (Negative); Blood,Urine Small (Negative); Color,Urine Yellow; Glucose,Urine (UA) Negative (Negative); Ketones,Urine Negative (Negative); Leukocyte Esterase,Urine Negative (Negative); Mucus,Urine Few /hpf; Nitrite,Urine Negative (Negative); Protein,Urine 1+ (Negative); RBC,Urine 52 /hpf (0-5); Specific Gravity,Urine 1.023 (1.001-1.035)
[2018-07-31] MEDS: SODIUM CHLORIDE 0.9% 1,000 ML IV SCH (05:49)
[2018-07-31 07:04] LABS: Anion Gap 8 mmol/L; Blood Urea Nitrogen 21 mg/dL (9-20); Calcium 9.6 mg/dL (8.4-10.2); Carbon Dioxide 29 mmol/L (22-30); Chloride 93 mmol/L (98-107); Glucose 92 mg/dL (74-99); Potassium 5.1 mmol/L (3.5-5.1); Sodium 130 mmol/L (137-145)
[2018-07-31] MEDS: DOCUSATE 100 MG CAP PO SCH ×2 (08:20→20:29)
[2018-07-31] MEDS: METOPROLOL TARTRATE 25 MG TAB PO SCH ×2 (08:20→20:29)
[2018-07-31] MEDS: APIXABAN 5 MG TAB PO SCH ×2 (08:20→20:29)
--- NOTE | 2018-07-31 10:52 | P.PN ---
Subjective Progress Note Date: 07/30/18 Progress note being dictated for Dr. Phillips 78-year-old male past medical history of HTN, CAD s/p triple bypass, chronic low back pain presenting today for cc of low back pain x30 minutes. Pt states that while at home on the toilet just prior to arrival he went to turn he began experiencing low back pain, 10/10 sharp pain midline. Patient denies falling or injury to the back. Patient states that he has baseline numbness of the legs from peripheral neuropathy, denies changes today. Patient denies any loss of bowel bladder control or urinary retention. Patient denies any chest pain, shortness of breath. Patient does admit to nausea because of the severity of pain, had episode of emesis prior to arrival. Denies abdominal pain, hematemesis ,melena, hematochezia. Upon arrival pt appears to be in distress due to pain, he arrived via EMS, VS stable. Pt grabbing towards lower back. In the ED An EKG was performed on the patient's arrival which showed atrial flutter, subsequent EKG continued to show atrial flutter with a 3 to one conduction. N[address]-T wave changes. Chest x-ray showed subsegmental atelectasis in the left lung base new as compared with old exam. CT of the lumbar spine showed moderate spinal stenosis at L4 to 5. Spondylitic changes without any evidence of acute fracture. Blood pressure on arrival here 138/90 with a heart rate in the 90s, 94% on room air. Blood pressure this morning 110/60 with a heart rate in the 70s, 97% on 2 L of oxygen. White blood cell count 11.7, hemoglobin 13.6, platelet count 557. Sodium 1:30, potassium 5.1, BUN 15, creatinine 0.7. Magnesium 1.8, total bilirubin 1.4. Troponin 0.01. 07/30/2018 complains of persistent back pain, orthopedic spinal surgery consulted. Sodium 130. Potassium 5.5 .telemetry atrial flutter, rate controlled, Review of Systems Constitutional: Denies chills, Denies fever Eyes: denies blurred vision Ears, nose, mouth and throat: Denies headache, Denies nasal congestion Cardiovascular: Denies chest pain Respiratory: Denies cough, Denies dyspnea Gastrointestinal: Denies abdominal pain Musculoskeletal: Reports gait dysfunction, Reports low back pain, Reports muscle cramps, Denies leg numbness/tingling Integumentary: Denies darkening of skin, Denies rash Neurological: Denies confusion, Denies paresthesias Endocrine: Denies cold intolerance, Denies heat intolerance, Denies polydipsia, Denies polyuria Hematologic/Lymphatic: Denies easy bruising, Denies lymphadenopathy Allergic/Immunologic: Denies seasonal allergies Active Medications Acetaminophen (Tylenol Tab) 650 mg PO Q6HR PRN PRN Reason: Mild Pain or Fever > 100.5 Last Admin: 07/30/18 16:40 Dose: 650 mg Apixaban (Eliquis) 5 mg PO BID [facility] Last Admin: 07/30/18 09:12 Dose: 5 mg Atorvastatin Calcium (Lipitor) 40 mg PO HS [facility] Last Admin: 07/29/18 19:42 Dose: 40 mg Docusate Sodium (Colace) 100 mg PO BID [facility] Sodium Chloride (Saline 0.9%) 1,000 mls @ 20 mls/hr IV .Q24H [facility] Last Admin: 07/29/18 08:02 Dose: Not Given Metoprolol Tartrate (Lopressor) 25 mg PO BID [facility] Last Admin: 07/30/18 09:12 Dose: 25 mg Morphine Sulfate (Morphine Sulfate (Inj)) 4 mg IV Q4HR PRN PRN Reason: Severe Pain Last Admin: 07/30/18 10:47 Dose: 4 mg Naloxone HCl (Narcan) 0.2 mg IV Q2M PRN PRN Reason: Opioid Reversal Ondansetron HCl (Zofran) 4 mg IVP Q8HR PRN PRN Reason: Nausea And Vomiting Last Admin: 07/30/18 10:48 Dose: 4 mg Sodium Polystyrene Sulfonate (Kayexalate) 15 gm PO ONCE STA Stop: 07/30/18 20:13 Objective - Vital Signs Vital signs: Vital Signs Temp 98.5 F 07/30/18 16:00 Pulse 71 07/30/18 16:00 Resp 18 07/30/18 16:00 BP 115/69 07/30/18 16:00 Pulse Ox 94 L 07/30/18 16:00 Intake & Output 07/30/18 07/30/18 07/31/18 06:59 18:59 06:59 Output Total 150 Balance -150 Weight 67.2 kg Output: Urine 150 Other: Voiding Method Urinal Urinal # Voids 1 0 - Exam GENERAL: no acute distress , alert and oriented HEENT: Head is atraumatic, normocephalic. Pupils equal, round. Sclera anicteric. Conjunctiva are clear. Mucous membranes of the mouth are moist. Neck is supple. There is no elevated jugular venous pressure. No carotid bruit is heard. HEART EXAMINATION: Heart S1 and S2 irregularly irregular, positive systolic murmur. CHEST EXAMINATION: Lungs are clear to auscultation and precussion. No chest wall tenderness is noted on palpation or with deep breathing. ABDOMEN: Soft, nontender. Bowel sounds are heard. No organomegaly noted. EXTREMITIES: 2+ peripheral pulses with no evidence of peripheral edema and no calf tenderness noted. NEUROLOGIC patient is awake, alert and oriented 3 - Labs CBC & Chem 7: 07/30/18 05:48 07/31/18 06:09 Labs: Abnormal Lab Results - Last 24 Hours (Table) 07/30/18 07/30/18 Range/Units 05:48 05:48 WBC 13.6 H (3.8-10.6) k/uL Plt Count 643 H (150-450) k/uL Neutrophils # 11.8 H (1.3-7.7) k/uL Lymphocytes # 0.9 L (1.0-4.8) k/uL Sodium 130 L (137-145) mmol/L Potassium 5.5 H (3.5-5.1) mmol/L Chloride 95 L (98-107) mmol/L Glucose 117 H (74-99) mg/dL Calcium 10.5 H (8.4-10.2) mg/dL Assessment and Plan Assessment: -Right lower back pain, possible strain, workup in progress -Atrial flutter, new onset -Hypertension -Hyperlipidemia -CAD -Hyperkalemia Plan: Continue on current medication regime ,monitoring and symptomatic treatment. Evaluated by PT/OT with subacute rehab recommended . and son at bedside requesting subacute rehab/ECF near [facility]. bull wheel worker notified. Orthopedic spine surgery consulted regarding back pain. Kayexalate ordered for hyperkalemia .close monitoring of electrolytes with repeat labs ordered for a.m. Discharge planning in progress for tomorrow pending orthopedic evaluation/recommendations. The impression and plan of care has been dictated as directed. : I performed a history and examination of this patient, discussed the same with the dictator. I agree with the dictator's note ,documented as a scribe. Any additional findings or plans will be noted.
--- NOTE | 2018-07-31 12:24 | P.PN ---
Subjective Progress Note Date: 07/31/18 This is a pleasant 78-year-old gentleman with history of hyperlipidemia, coronary artery disease with prior bypass surgery in 2011. Patient underwent VASQUEZ to the LAD, saphenous vein graft to the OM and saphenous vein graft to the right coronary artery. Patient also has history of hypertension. He presents to the hospital on this occasion with symptoms of lower back pain and bilateral leg numbness. Apparently the patient was sitting on the toilet, he turned sideways and developed a sharp 10 out of 10 chest pain. He does have some numbness in his legs routinely from peripheral neuropathy but this seemed to be worse. He did have an episode of nausea and vomiting prior to arrival here. According to the , patient has also had a very poor appetite recently at home, has lost about 10 pounds since April. At the time of my examination this morning his pain is significantly improved. An EKG was performed on the patient's arrival which showed atrial flutter, subsequent EKG continued to show atrial flutter with a 3 to one conduction. N[address]-T wave changes. According to the patient he has never been told in the past to have any irregularity of his heartbeat. CT of the thoracic aorta was performed which was negative, no evidence of aortic aneurysm or dissection. Chest x-ray showed subsegmental atelectasis in the left lung base new as compared with old exam. CT of the lumbar spine showed moderate spinal stenosis at L4 to 5. Spondylitic changes without any evidence of acute fracture. Blood pressure on arrival here 138/90 with a heart rate in the 90s, 94% on room air. Blood pressure this morning 110/60 with a heart rate in the 70s, 97% on 2 L of oxygen. White blood cell count 11.7, hemoglobin 13.6, platelet count 557. Sodium 1:30, potassium 5.1, BUN 15, creatinine 0.7. Magnesium 1.8, total bilirubin 1.4. Troponin 0.01. I did have a discussion with the patient, his and his son regarding the importance of anticoagulation for stroke prevention. We will obtain an echocardiogram with Doppler study as well as a TSH, start the patient on Eliquis for anticoagulation. 07/30/2018 Patient was seen and examined this morning, continues to be in atrial flutter however the rate is under adequate control. From cardiology's perspective he may be able to be discharged home today. Echocardiogram with Doppler study was performed which revealed a normal left ventricular systolic function. TSH level was normal. 07/31/2018 Patient was seen and examined this morning, continues to be in atrial flutter, heart rate in the 70s. From our perspective patient may be able to be discharged home once cleared by primary. We will follow him along with you now on an as-needed basis only, please don't hesitate to call with any questions. Objective - Vital Signs Vital signs: Vital Signs Temp 98.1 F 07/31/18 08:15 Pulse 73 07/31/18 08:15 Resp 18 07/31/18 08:15 BP 142/81 07/31/18 08:15 Pulse Ox 97 07/31/18 08:15 Intake & Output 07/30/18 07/31/18 07/31/18 18:59 06:59 18:59 Weight 67.4 kg Other: Voiding Method Urinal Urinal # Voids 0 1 - Exam PHYSICAL EXAMINATION: GENERAL: 78-year-old gentleman in no acute distress at the time of my examination HEENT: Head is atraumatic, normocephalic. Pupils equal, round. Sclera anicteric. Conjunctiva are clear. Mucous membranes of the mouth are moist. Neck is supple. There is no elevated jugular venous pressure. No carotid bruit is heard. HEART EXAMINATION: Heart S1 and S2 irregularly irregular a systolic murmur is heard. CHEST EXAMINATION: Lungs are clear to auscultation and precussion. No chest wall tenderness is noted on palpation or with deep breathing. ABDOMEN: Soft, nontender. Bowel sounds are heard. No organomegaly noted. EXTREMITIES: 2+ peripheral pulses with no evidence of peripheral edema and no calf tenderness noted. NEUROLOGIC patient is awake, alert and oriented 3 . - Labs CBC & Chem 7: 07/30/18 05:48 07/31/18 06:09 Labs: Abnormal Lab Results - Last 24 Hours (Table) 07/31/18 07/31/18 Range/Units 00:00 06:09 Sodium 130 L (137-145) mmol/L Chloride 93 L (98-107) mmol/L BUN 21 H (9-20) mg/dL Creatinine 0.61 L (0.66-1.25) mg/dL Urine Protein 1+ H (Negative) Urine Blood Small H (Negative) Urine RBC 52 H (0-5) /hpf Urine WBC 6 H (0-5) /hpf Urine Mucus Few H (None) /hpf Microbiology - Last 24 Hours (Table) 07/31/18 00:00 Urine Culture - Preliminary Urine,Voided Assessment and Plan Plan: Assessment and plan #1 right lower back pain, suggestive of possible strain #2 atrial flutter, typical, appears to be of new onset for this patient #3 hypertension #4 hyperlipidemia #5 known history of coronary Artery disease with prior bypass surgery in 2011 #6 history of nicotine dependence in the past Plan Echocardiogram with Doppler study revealed a normal left ventricular systolic function. From cardiology's perspective the patient may be able to be discharged home today. We'll make him a follow-up appointment in the office one week post discharge. We will follow along with you now on an as-needed basis only, please don't hesitate to call with any questions. DNP note has been reviewed, I agree with a documented findings and plan of care. Patient was seen and examined.
--- NOTE | 2018-07-31 16:48 | P.CNOR ---
History of Present Illness - [facility] Consult date: 07/31/18 Requesting physician: Corazon Phillips Consult reason: low back pain (Acute on chronic low back pain) History of present illness: Patient is a pleasant 78-year-old male who is seen and examined at bedside for further evaluation for low back pain. He states he was sitting on the toilet on 07/28/2018 when he twisted causing severe low back pain. He presented to emergency department for further evaluation. He denies a specific falls. He states his back pain has significantly improved since his admittance. He is not currently complaining of any significant back pain. Have difficulty with bilateral peripheral neuropathy that is remain stable. He does admit to increased difficulty ambulation with the past several months and has fallen multiple times. He has not been seen or evaluated in regards to his difficulty with ambulation. He states he often catches his right foot during ambulation causing him to fall to the ground. A CT of the thoracic aorta and lumbar spine was performed in the emergency department which showed some degenerative changes of the lumbar spine without acute change. His family is present with him at the bedside and voices or concerns about his mobility and ambulation. Patient does have a past medical history which includes hypertension, coronary artery disease with triple bypass and chronic low back pain. Patient was also found to have some cardiac changes after further testing emergency department and is being seen and examined by cardiology. Nursing states cardiology has adjusted some of his medications and is not currently planning for further treatment. Patient does admit to weight loss over the past few months without known cause. Patient and family states he is undergone numerous workup to determine the cause without any significant findings. Patient's son states they 're planning for discharge to a rehabilitation facility in [place], [place]. The son plans to transfer the patient to the rehabilitation facility himself at the time of discharge. Past Medical History Past Medical History: Coronary Artery Disease (CAD), Hyperlipidemia, Hypertension Additional Past Medical History / Comment(s): new onset A flutter History of Any Multi-Drug Resistant Organisms: None Reported Past Surgical History: Cholecystectomy, Coronary Bypass/CABG Past Anesthesia/Blood Transfusion Reactions: No Reported Reaction Past Psychological History: No Psychological Hx Reported Smoking Status: Former smoker Past Alcohol Use History: None Reported Past Drug Use History: None Reported - Past Family History Mother Family Medical History: Dementia Father History Unknown: Yes Medications and Allergies Home Medications Medication Instructions Recorded Confirmed Type Aspirin 81 mg PO DAILY@0900 10/23/14 07/29/18 History Lisinopril [Prinivil] 10 mg PO DAILY@1100 10/23/14 07/29/18 History Simvastatin [Zocor] 20 mg PO HS@1900 10/23/14 07/29/18 History Metoprolol Tartrate [Lopressor] 25 mg PO BID@0900,1900 07/29/18 07/29/18 History Multivitamins, Thera [Multivitamin 1 tab PO MOWEFR@1100 07/29/18 07/29/18 History (formulary)] Allergies Allergy/AdvReac Type Severity Reaction Status Date / Time No Known Allergies Allergy Verified 07/29/18 08:06 Physical Examination Physical exam: Patient is awake, alert, and oriented 3 Vital signs stable Good chest excursion with deep inspiration and expiration Abdomen soft nontender Examination of lumbar spine reveals skin is intact with no abrasions, lacerations, or bruises; no erythema, purulence or signs of infection Is significant pain with palpation of the lumbar spine Dorsiflexion, plantarflexion, and extensor hallucis longus positive sustained on the left Patient has significant difficulty with performing dorsiflexion and extensor hallucis longus on the right Motor strength of the lower extremity is 2/5 including dorsiflexion Motor strength of the lower extremity is 0/5 including extensor hallucis longus Plantarflexion on the right out of the maintained Difficulty with lifting legs independently off the bed No signs or symptoms of DVT; no calf pain No pain with internal and external rotation of the hips bilaterally Reduced sensation to palpation of the bilateral lower extremities below the knee Results CT of the thoracic aorta and lumbar spine: Degenerative disc disease throughout the lumbar spine with variable vacuum disc phenomenon along with spur formation of the endplates throughout the lumbar spine; no evidence of acute body compression fracture; no evidence of focal bone disruption; slight lumbar dextroscoliosis; mild spinal canal stenosis at L3-4 and L5-S1; moderate spinal canal stenosis at L4-5 due to facet arthropathy and ligamentum flavum thickening - Labs Labs: Abnormal Lab Results - Last 24 Hours (Table) 07/31/18 07/31/18 Range/Units 00:00 06:09 Sodium 130 L (137-145) mmol/L Chloride 93 L (98-107) mmol/L BUN 21 H (9-20) mg/dL Creatinine 0.61 L (0.66-1.25) mg/dL Urine Protein 1+ H (Negative) Urine Blood Small H (Negative) Urine RBC 52 H (0-5) /hpf Urine WBC 6 H (0-5) /hpf Urine Mucus Few H (None) /hpf Microbiology - Last 24 Hours (Table) 07/31/18 00:00 Urine Culture - Preliminary Urine,Voided H & H 07/28/18 07/30/18 Range/Units 23:17 05:48 Hgb 13.6 13.8 (13.0-17.5) gm/dL Hct 41.6 41.1 (39.0-53.0) % Result Diagrams: 07/30/18 05:48 07/31/18 06:09 Assessment and Plan Assessment: Assessment: Acute on chronic low back pain resolved; patient currently at baseline for back pain Right lower extremity weakness Peripheral neuropathy Difficulty with ambulation Lumbar degenerative disc disease Lumbar facet arthropathy Lumbar spinal stenosis Recent weight loss of unknown cause History of recent falls History of coronary artery disease with stenting History of hypertension (1) Acute exacerbation of chronic low back pain Current Visit: Yes Status: Acute Code(s): M54.5 - LOW BACK PAIN; G89.29 - OTHER CHRONIC PAIN SNOMED Code(s): 886166272 (2) Right leg weakness Current Visit: Yes Status: Acute Code(s): R29.898 - OTH SYMPTOMS AND SIGNS INVOLVING THE MUSCULOSKELETAL SYSTEM SNOMED Code(s): 091047519 (3) Lumbar degenerative disc disease Current Visit: Yes Status: Acute Code(s): M51.36 - OTHER INTERVERTEBRAL DISC DEGENERATION, LUMBAR REGION SNOMED Code(s): 97452933 (4) Lumbar spinal stenosis Current Visit: Yes Status: Acute Code(s): M48.061 - SPINAL STENOSIS, LUMBAR REGION WITHOUT NEUROGENIC REMA SNOMED Code(s): 80253975 (5) Lumbar facet arthropathy Current Visit: Yes Status: Acute Code(s): M47.816 - SPONDYLOSIS W/O MYELOPATHY OR RADICULOPATHY, LUMBAR REGION SNOMED Code(s): 805711266 (6) Peripheral neuropathy Current Visit: Yes Status: Acute Code(s): G62.9 - POLYNEUROPATHY, UNSPECIFIED SNOMED Code(s): 953860051 (7) History of recent fall Current Visit: Yes Status: Acute Code(s): Z91.81 - HISTORY OF FALLING SNOMED Code(s): 547919536 (8) Weight loss, unintentional Current Visit: Yes Status: Acute Code(s): R63.4 - ABNORMAL WEIGHT LOSS SNOMED Code(s): 478629873 (9) History of coronary artery disease Current Visit: Yes Status: Acute Code(s): Z86.79 - PERSONAL HISTORY OF OTHER DISEASES OF THE CIRCULATORY SYSTEM SNOMED Code(s): 884084907 (10) History of hypertension Current Visit: Yes Status: Acute Code(s): Z86.79 - PERSONAL HISTORY OF OTHER DISEASES OF THE CIRCULATORY SYSTEM SNOMED Code(s): 980968252 Plan: Plan: 1. Patient has been discussed in detail with Dr. Adrián Handy. At this time, we are not currently planning for surgical intervention regards to his lumbosacral spine. He has have significant degenerative changes throughout his lumbar spine. He has had recent falls and catches his right foot during ambulation. On physical examination he does have significant weakness with dorsiflexion and extensor hallucis longus of the right lower extremity. At this time a prescription is written for an AFO brace. His prescription is provided to case management. This brace should be obtained prior to the patient be discharged. Patient is not currently experiencing significant back pain or lower extremity radiculopathy symptoms. He was experiencing acute on chronic low back pain and feels his symptoms have returned back to his baseline. He has been using a walker to aid in ambulation we feel he should continue using a walker to aid in ambulation. We discussed the possibility of discharge to rehabilitation facility which is currently being planned for a facility in [place], [place]. The son plans to transfer his father there on his own at the time of discharge. We will plan have him follow up in approximately 3-4 weeks for follow evaluation after the patient returns back to [place]. We will discuss further treatment options at that time depending how he is progressing with conservative treatment and if he is receiving benefit by using his AFO brace. Once the AFO has been delivered and fitted appropriately, patient is clear for discharge from orthopedic spine standpoint. 2. Patient will continue to be seen by medicine and cardiology for his other medical diagnoses 3. Patient may follow-up with Logan Gloria PA-C or Dr. Adrián Handy at [facility] in approximately 3-4 weeks for further evaluation 4. Patient has been discussed in detail with Dr. Adrián Handy and he agrees with this plan Time with Patient: Greater than 30
[2018-07-31] MEDS: ATORVASTATIN 40 MG TAB PO SCH (20:29)
--- NOTE | 2018-07-31 22:26 | P.PN ---
Subjective Progress Note Date: 07/31/18 Progress note being dictated for Dr. Phillips 78-year-old male past medical history of HTN, CAD s/p triple bypass, chronic low back pain presenting today for cc of low back pain x30 minutes. Pt states that while at home on the toilet just prior to arrival he went to turn he began experiencing low back pain, 10/10 sharp pain midline. Patient denies falling or injury to the back. Patient states that he has baseline numbness of the legs from peripheral neuropathy, denies changes today. Patient denies any loss of bowel bladder control or urinary retention. Patient denies any chest pain, shortness of breath. Patient does admit to nausea because of the severity of pain, had episode of emesis prior to arrival. Denies abdominal pain, hematemesis ,melena, hematochezia. Upon arrival pt appears to be in distress due to pain, he arrived via EMS, VS stable. Pt grabbing towards lower back. In the ED An EKG was performed on the patient's arrival which showed atrial flutter, subsequent EKG continued to show atrial flutter with a 3 to one conduction. N[address]-T wave changes. Chest x-ray showed subsegmental atelectasis in the left lung base new as compared with old exam. CT of the lumbar spine showed moderate spinal stenosis at L4 to 5. Spondylitic changes without any evidence of acute fracture. Blood pressure on arrival here 138/90 with a heart rate in the 90s, 94% on room air. Blood pressure this morning 110/60 with a heart rate in the 70s, 97% on 2 L of oxygen. White blood cell count 11.7, hemoglobin 13.6, platelet count 557. Sodium 1:30, potassium 5.1, BUN 15, creatinine 0.7. Magnesium 1.8, total bilirubin 1.4. Troponin 0.01. 07/30/2018 complains of persistent back pain, orthopedic spinal surgery consulted. Sodium 130. Potassium 5.5 .telemetry atrial flutter, rate controlled, Review of Systems Constitutional: Denies chills, Denies fever Eyes: denies blurred vision Ears, nose, mouth and throat: Denies headache, Denies nasal congestion Cardiovascular: Denies chest pain Respiratory: Denies cough, Denies dyspnea Gastrointestinal: Denies abdominal pain Musculoskeletal: Reports gait dysfunction, Reports low back pain, Reports muscle cramps, Denies leg numbness/tingling Integumentary: Denies darkening of skin, Denies rash Neurological: Denies confusion, Denies paresthesias Endocrine: Denies cold intolerance, Denies heat intolerance, Denies polydipsia, Denies polyuria Hematologic/Lymphatic: Denies easy bruising, Denies lymphadenopathy Allergic/Immunologic: Denies seasonal allergies Active Medications Acetaminophen (Tylenol Tab) 650 mg PO Q6HR PRN PRN Reason: Mild Pain or Fever > 100.5 Last Admin: 07/30/18 16:40 Dose: 650 mg Apixaban (Eliquis) 5 mg PO BID [facility] Last Admin: 07/30/18 09:12 Dose: 5 mg Atorvastatin Calcium (Lipitor) 40 mg PO HS [facility] Last Admin: 07/29/18 19:42 Dose: 40 mg Docusate Sodium (Colace) 100 mg PO BID [facility] Sodium Chloride (Saline 0.9%) 1,000 mls @ 20 mls/hr IV .Q24H [facility] Last Admin: 07/29/18 08:02 Dose: Not Given Metoprolol Tartrate (Lopressor) 25 mg PO BID [facility] Last Admin: 07/30/18 09:12 Dose: 25 mg Morphine Sulfate (Morphine Sulfate (Inj)) 4 mg IV Q4HR PRN PRN Reason: Severe Pain Last Admin: 07/30/18 10:47 Dose: 4 mg Naloxone HCl (Narcan) 0.2 mg IV Q2M PRN PRN Reason: Opioid Reversal Ondansetron HCl (Zofran) 4 mg IVP Q8HR PRN PRN Reason: Nausea And Vomiting Last Admin: 07/30/18 10:48 Dose: 4 mg Sodium Polystyrene Sulfonate (Kayexalate) 15 gm PO ONCE STA Stop: 07/30/18 20:13 07/31/2018 back pain improving. evaluated by orthopedic surgery regarding acute on chronic low back pain, recommendations noted. Conservative treatment with AFO brace ordered. Telemetry reporting atrial flutter, controlled. Objective - Vital Signs Vital signs: Vital Signs Temp 98.1 F 07/31/18 16:00 Pulse 80 07/31/18 16:00 Resp 18 07/31/18 16:00 BP 154/96 07/31/18 16:00 Pulse Ox 95 07/31/18 16:00 Intake & Output 07/31/18 07/31/18 08/01/18 06:59 18:59 06:59 Intake Total 240 Output Total 200 Balance 40 Weight 67.4 kg Intake: Oral 240 Output: Urine 200 Other: Voiding Method Urinal # Voids 1 1 - Exam GENERAL: no acute distress , alert and oriented HEENT: Head is atraumatic, normocephalic. Pupils equal, round. Sclera anicteric. Conjunctiva are clear. Mucous membranes of the mouth are moist. Neck is supple. There is no elevated jugular venous pressure. No carotid bruit is heard. HEART EXAMINATION: Heart S1 and S2 irregularly irregular, positive systolic murmur. CHEST EXAMINATION: Lungs are clear to auscultation and precussion. No wheezing, rhonchi or crackles ABDOMEN: Soft, nontender. Bowel sounds are heard. No organomegaly noted. EXTREMITIES: 2+ peripheral pulses with no evidence of peripheral edema and no calf tenderness noted. NEUROLOGIC patient is awake, alert and oriented 3 - Labs CBC & Chem 7: 07/30/18 05:48 07/31/18 06:09 Labs: Abnormal Lab Results - Last 24 Hours (Table) 07/31/18 07/31/18 Range/Units 00:00 06:09 Sodium 130 L (137-145) mmol/L Chloride 93 L (98-107) mmol/L BUN 21 H (9-20) mg/dL Creatinine 0.61 L (0.66-1.25) mg/dL Urine Protein 1+ H (Negative) Urine Blood Small H (Negative) Urine RBC 52 H (0-5) /hpf Urine WBC 6 H (0-5) /hpf Urine Mucus Few H (None) /hpf Microbiology - Last 24 Hours (Table) 07/31/18 00:00 Urine Culture - Preliminary Urine,Voided Assessment and Plan Assessment: -Acute on chronic lower back pain, possible strain, evaluated by orthopedic surgery,AFO brace pending -Atrial flutter, new onset, controlled -Peripheral neuropathy -Lumbar degenerative disc disease, lumbar spinal stenosis, lumbar facet arthropathy -Recent falls -Hypertension -Hyperlipidemia -CAD -Hyperkalemia Plan: Continue on current medication regime ,monitoring and symptomatic treatment. Evaluated by orthopedic surgery, conservative treatment with AFO brace ordered . Discharge planning in progress for tomorrow to [facility]. Patient to have AFO brace prior to discharge-Rx given to lead case manager. The impression and plan of care has been dictated as directed. : I performed a history and examination of this patient, discussed the same with the dictator. I agree with the dictator's note ,documented as a scribe. Any additional findings or plans will be noted.
--- NOTE | 2018-07-31 22:37 | P.DS ---
Providers Date of admission: 07/29/18 01:45 Expected date of discharge: 08/01/18 Attending physician: Corazon Phillips Consults: 07/29/18 01:41 Consult Physician Stat Consulting Provider: Bandar Collins Consult Reason/Comments: atrial flutter Do you want consulting provider notified?: Yes 07/30/18 11:20 Consult Physician Routine Consulting Provider: Will Handy Consult Reason/Comments: BACK PAIN Do you want consulting provider notified?: Yes Primary care physician: Ayala Nugent [facility] Course: Final Diagnoses: -Acute on chronic lower back pain, evaluated by orthopedic surgery,-Lumbar degenerative disc disease, lumbar spinal stenosis, lumbar facet arthropathyAFO brace pending. -Atrial flutter, new onset, controlled -Peripheral neuropathy -Recent falls -Hypertension -Hyperlipidemia -CAD -Hyperkalemia, improved Hospital course:78-year-old male past medical history of HTN, CAD s/p triple bypass, chronic low back pain presenting today for cc of low back pain x30 minutes. Pt states that while at home on the toilet just prior to arrival he went to turn he began experiencing low back pain, 10/10 sharp pain midline. Patient denies falling or injury to the back. Patient states that he has baseline numbness of the legs from peripheral neuropathy, denies changes today. Patient denies any loss of bowel bladder control or urinary retention. Patient denies any chest pain, shortness of breath. Patient does admit to nausea because of the severity of pain, had episode of emesis prior to arrival. Denies abdominal pain, hematemesis,melena, hematochezia. Upon arrival pt appears to be in distress due to pain, he arrived via EMS, VS stable. Pt grabbing towards lower back. In the ED An EKG was performed on the patient's arrival which showed atrial flutter, subsequent EKG continued to show atrial flutter with a 3 to [address] conduction[address]-T wave changes. Chest x-ray showed subsegmental atelectasis in the left lung base new as compared with old exam. CT of the lumbar spine showed moderate spinal stenosis at L4 to 5. Spondylitic changes without any evidence of acute fracture. Evaluated by cardiology and orthopedic spine surgery. Regarding back pain, conservative management with AFO brace ordered. Significant clinical improvement. Patient to have AFO brace on prior to discharge. Cleared by all consults for discharge. Patient is being discharged to [facility] subacute rehab in [facility] in a stable condition with guarded prognosis. - Exam GENERAL: no acute distress , alert and oriented 3 HEART EXAMINATION: Heart S1 and S2 irregularly irregular, positive systolic murmur. CHEST EXAMINATION: Lungs are clear to auscultation and precussion. No wheezing, rhonchi or crackles ABDOMEN: Soft, nontender. Bowel sounds are heard. No organomegaly noted. NEUROLOGIC no gross focal deficits The impression and plan of care has been dictated as directed. : I performed a history and examination of this patient, discussed the same with the dictator. I agree with the dictator's note ,documented as a scribe. Any additional findings or plans will be noted. Time taken: 35 minutes Patient Condition at Discharge: Stable Plan - Discharge Summary New Discharge Prescriptions: New Acetaminophen Tab [Tylenol] 650 mg PO Q6HR PRN tab PRN Reason: Mild Pain Or Fever > 100.5 Apixaban [Eliquis] 5 mg PO BID tab Atorvastatin [Lipitor] 40 mg PO HS tab Docusate [Colace] 100 mg PO BID cap Metoprolol Tartrate [Lopressor] 25 mg PO BID tab Continue Multivitamins, Thera [Multivitamin (formulary)] 1 tab PO MOWEFR@1100 Discontinued Simvastatin [Zocor] 20 mg PO HS@1900 Lisinopril [Prinivil] 10 mg PO DAILY@1100 Aspirin 81 mg PO DAILY@0900 Metoprolol Tartrate [Lopressor] 25 mg PO BID@0900,1900 Discharge Medication List Multivitamins, Thera [Multivitamin (formulary)] 1 tab PO MOWEFR@1100 07/29/18 [ History] Acetaminophen Tab [Tylenol] 650 mg PO Q6HR PRN tab 07/31/18 [Rx] Apixaban [Eliquis] 5 mg PO BID tab 07/31/18 [Rx] Atorvastatin [Lipitor] 40 mg PO HS tab 07/31/18 [Rx] Docusate [Colace] 100 mg PO BID cap 07/31/18 [Rx] Metoprolol Tartrate [Lopressor] 25 mg PO BID tab 07/31/18 [Rx] Follow up Appointment(s)/Referral(s): Bandar Collins MD [STAFF PHYSICIAN] - 10 Days (Office to call with follow up appointment.) Logan Gloria PAC [PHYSICIAN SALON PROFESSIONAL] - 4 Weeks (Patient may follow-up with Logan Gloria PA-C or Dr. Adrián Handy at [facility] in 3-4 weeks following discharge. ) Raffi Cai MD [Primary Care Provider] - 1 Week (After discharge from subacute rehab) F PCP, @ [facility] [Other] - 3 Days Patient Instructions/Handouts: Atrial Flutter (DC), Lumbar Spinal Stenosis (DC) , Safe Use of Anticoagulants (DC) Activity/Diet/Wound Care/Special Instructions: PACKET AT DESK. SEE INSTRUCTIONS pts copay for Eliquis is $43.50/mo PATRICIA odom-Ventura [phone]- will be delivered 07-31 at 14:30 1. Use AFO brace for the right lower extremity to aid in ambulation 2. Continue to use walker to aid in ambulation as needed 3. pt needs to wear his shoe with AFO brace CBC, BMP in 3 days
[2018-08-01 04:04] LABS: Basophils % (A) 0 %; Eosinophils # (A) 0.1 k/uL (0-0.7); Eosinophils % (A) 1 %; HCT 39.1 % (39.0-53.0); HGB 12.9 gm/dL (13.0-17.5); Lymphocytes # (A) 1.1 k/uL (1.0-4.8); Lymphocytes % (A) 11 %; MCH 30.9 pg (25.0-35.0); MCHC 32.9 g/dL (31.0-37.0); Mean Platelet Volume 7.2; Monocytes # (A) 0.5 k/uL (0-1.0); Monocytes % (A) 6 %; Neutrophils % (A) 81 %; Platelet Count 556 k/uL (150-450); RBC 4.16 m/uL (4.30-5.90); RDW 13.3 % (11.5-15.5); WBC 9.8 k/uL (3.8-10.6)
[2018-08-01 04:19] LABS: Anion Gap 6 mmol/L; Blood Urea Nitrogen 21 mg/dL (9-20); Calcium 9.4 mg/dL (8.4-10.2); Carbon Dioxide 30 mmol/L (22-30); Chloride 93 mmol/L (98-107); Glucose 94 mg/dL (74-99); Magnesium 1.8 mg/dL (1.6-2.3); Potassium 4.5 mmol/L (3.5-5.1); Sodium 129 mmol/L (137-145)
[2018-08-01] MEDS: DOCUSATE 100 MG CAP PO SCH (09:21)
[2018-08-01] MEDS: APIXABAN 5 MG TAB PO SCH (09:21)
[2018-08-01] MEDS: METOPROLOL TARTRATE 25 MG TAB PO SCH (09:21)
[2018-08-01] MEDS: SODIUM CHLORIDE 0.9% 1,000 ML IV SCH (09:27)
[2018-08-01 11:15] VITALS: BP 111/64; PULSE 70; TEMP 98
--- NOTE | 2018-08-02 10:52 | DS ---
DISCHARGE SUMMARY DATE OF SERVICE: 08/01/2018. HISTORY OF PRESENT ILLNESS: This 78-year-old gentleman admitted with acute low back pain also had atrial flutter, new onset controlled. The patient also had peripheral neuropathy and multiple other medical problems. The patient improved significantly. Patient being discharged in stable condition with guarded prognosis. The patient will be sent to [facility] near the patient's son's home. Please refer to my previous dictation for detailed diagnosis and history of diagnosis and list of medications. Total time taken: 35 minutes. On exam, vitals are stable. Cardiovascular S1, S2. Abdomen soft. Central nervous system: No focal deficits. MMODL / IJN: [id number] /
== END 2018-08-01 15:28 | DRG 552 ==
LOC: EC 22:54 → 4SSUR 07-29 01:45 → OBSVTOIN 07-29 01:45 → 3SCARD 07-29 02:50
PROVIDERS: ADMIT Hospitalist; ATTEND Hospitalist
DX: M51.36 Other intervertebral disc degeneration, lumbar region (principal); I48.92 Unspecified atrial flutter; J98.11 Atelectasis; M48.061 Spinal stenosis, lumbar region without neurogenic claudication; E78.5 Hyperlipidemia, unspecified; E87.5 Hyperkalemia; G62.9 Polyneuropathy, unspecified; G89.29 Other chronic pain; I10 Essential (primary) hypertension; I25.10 Atherosclerotic heart disease of native coronary artery without angina pectoris; M41.9 Scoliosis, unspecified; M48.07 Spinal stenosis, lumbosacral region; M46.96 Unspecified inflammatory spondylopathy, lumbar region; R29.6 Repeated falls; Z79.82 Long term (current) use of aspirin; Z87.891 Personal history of nicotine dependence; Z91.81 History of falling; Z95.1 Presence of aortocoronary bypass graft; Z95.5 Presence of coronary angioplasty implant and graft; Z79.899 Other long term (current) drug therapy; Z90.49 Acquired absence of other specified parts of digestive tract
CPT/HCPCS: 36415; 71046; 71275; 72131; 74174; 80048; 80053; 81001; 82550; 82553; 83735; 84443; 84484; 85025; 87077; 87086; 87186; 93005; 93306; 96374; 96375; 96376; 99285